=== PATIENT | female | born 1955 | race Caucasian/White ===

== ENCOUNTER 2020-04-28 00:22 | Emergency (ER) | payer OTHER, SELFPAY ==
--- NOTE | 2020-04-28 00:28 | ED_ITS ---
HPI - Abdominal Pain General Chief Complaint: Abdominal Pain Stated Complaint: ABD PAIN Time Seen by Provider: 04/28/20 00:26 Source: patient Mode of arrival: ambulatory Limitations: no limitations History of Present Illness HPI narrative: Patient no significant history of abdominal problems notice a sudden onset of lower abdominal pain more on the left side since 19:00 associated with nausea pain gets worse when she ambulates patient never had similar pain in the past, had normal bowel movement today MD elicited complaint: abdominal pain Pertinent past history: none Onset (ago): hour(s) Pain Consistency: intermittent Location: LLQ Severity: moderate Quality: cramping Radiation: none Exacerbating factors: movement Relieving factors: nothing Associated symptoms: nausea Related Data Allergies Allergy/AdvReac Type Severity Reaction Status Date / Time ampicillin Allergy Rash Verified 04/28/20 00:35 azithromycin Allergy Rash Verified 04/28/20 00:35 [From Zithromax Z-Guillermo] Penicillins Allergy Rash Verified 04/28/20 00:35 Review of Systems Review of Systems Constitutional : No Weight loss, No Fever, No Chills ENT/Mouth : No sore throat, No Rhinorrhea Eyes: No Eye Pain, No Swelling Cardiovascular : No Chest Pain, no palpitations Respiratory : No Cough, No Sputum, no shortness of breath Gastrointestinal :+Nausea, No Vomiting, No Diarrhea, + abdominal Pain, no black stools Genitourinary : No Dysuria, No Urinary Frequency Musculoskeletal : No joint pain, No Myalgias, No Joint Swelling Skin : No Skin Lesions, No rash Neuro : No Weakness, No Numbness, No Dizziness, No Headache Psych : No Anxiety/Panic, No Depression Heme/Lymph: No Bruising, No Lymphadenopathy Endocrine : No Polyuria, No Polydipsia All other systems reviewed and are negative Physical Exam Vital Signs: Vital Signs: Last Vital Signs Temp 98.7 F 04/28/20 00:36 Pulse 76 04/28/20 00:36 Resp 17 04/28/20 00:36 BP 126/60 04/28/20 00:36 Pulse Ox 96 04/28/20 00:36 Body Mass Index 29.8 Appearance: Alert. Oriented X3. No acute distress. Eyes: Pupils equal, round and reactive to light. ENT: Pharynx normal. Neck: Normal inspection. Neck supple. CVS: Normal heart rate and rhythm. Pulses normal. Respiratory: No respiratory distress. Breath sounds normal. Abdomen: Soft slight deep tenderness left lower quadrant m Bowel sounds are present, no mass palpable, no CVA tenderness Skin: Skin warm and dry. Normal skin color. Normal skin turgor. Extremities: No lower extremity edema. Neuro: Oriented X 3. No motor deficit. No sensory deficit. MDM - Abdominal Pain MDM Narrative Medical decision making narrative: Patient with Lower abdominal cramping pain CT scan is negative for any acute pathology except for mild enteritis with incr eased stool burden, WBC counts are normal patient denies any diarrhea at this time give her Bentyl and discharge her home Differential Diagnosis Differential diagnosis: Likely abdominal pain, diverticulitis and tariq roenteritis Medical Records Attestation: I reviewed the patient's medical records. Lab Data Attestation: I reviewed the patient's lab results. Result diagrams: 04/28/20 01:06 04/28/20 01:06 Labs: Lab Results 04/28/20 04/28/20 04/28/20 Range/Units 01:06 01:06 01:06 WBC 9.0 (4.8-10.8) X10*3/uL RBC 4.39 (4.20-5.50) X10*6/uL Hgb 13.8 (12.0-16.0) g/dl Hct 41.2 (37-47) % MCV 93.8 (80-98) fL MCH 31.4 (27.0-33.0) pg MCHC 33.5 (31.0-35.0) g/dl RDW 12.6 (11.0-16.0) % Plt Count 212 (160-400) X10*3/uL MPV 10.0 (9.4-12.3) fL Immature Gran % (Auto) 0.4 (0.0-0.4) % Neut % (Auto) 78.5 H (45-73) % Lymph % (Auto) 15.5 L (20-40) % Cloud % (Auto) 4.8 (2-11) % Eos % (Auto) 0.7 (0-4) % Baso % (Auto) 0.1 (0-2) % Lymph # (Auto) 1.4 (1.2-4.9) X10*3/uL [place] # (Auto) 0.4 (0.1-1.2) X10*3/uL Eos # (Auto) 0.1 (0.0-0.4) X10*3/uL Baso # (Auto) 0.0 (0.0-0.2) X10*3/uL Abs Immat Gran (auto) 0.04 H (0.00-0.03) X10*3/uL Absolute Neuts (auto) 7.0 (2.0-8.3) X10*3/uL Absolute Nucleated RBC 0.000 (0.0-0.012) X10*3/uL Nucleated RBC % (auto) 0.0 (0.0-0.2) /100WBC Sodium Cancelled 138 Potassium Cancelled 3.9 Chloride Cancelled 101 Carbon Dioxide Cancelled 27 Anion Gap Cancelled 14 BUN Cancelled 22 H Creatinine Cancelled 0.74 Estim Creat Clear Calc Cancelled 83.8 Estimated GFR Cancelled > 60 Random Glucose Cancelled 134 H Calcium Cancelled 9.6 Total Bilirubin 0.4 (0.0-1.0) mg/dL Direct Bilirubin 0.2 (0.0-0.5) mg/dL AST 27 (5-31) U/L ALT 39 H (0-31) U/L Alkaline Phosphatase 62 (39-117) U/L Total Protein 6.3 L (6.5-8.0) g/dL Albumin 4.1 (3.5-5.0) g/dL Lipase 29 (8-78) U/L [facility] Past Medical History Medical History (Updated 04/28/20 @ 00:41 by Milka Ahuja) HTN (hypertension) Surgical History (Updated 04/28/20 @ 00:41 by Milka Ahuja) H/O shoulder surgery Social History Social History Smoking Status: Never smoker Use of substances other than those prescribed or required for medical reasons: No Advance Directives: No Advance Directives Information Provided: No
[2020-04-28 00:36] VITALS: BP 126/60; PULSE 76; RESP 17; TEMP 37.1; O2SAT 96; BMI 29.8
--- NOTE | 2020-04-28 00:37 | CT_ITS ---
EXAMINATION: CT ABDOMEN AND PELVIS WITHOUT CONTRAST CLINICAL INFORMATION: Left lower quadrant pain. Question diverticulitis. COMPARISON: None TECHNIQUE: Multidetector volumetric imaging was performed from the superior aspect of the liver through the pubic symphysis. Sagittal and coronal reformatted images were obtained on the technologist's workstation. This CT examination was performed using dose optimization techniques as appropriate, variously including the following: *Automated exposure control *Adjustment of mA and/or kV according to patient size (this includes techniques or standardized protocols for targeted exams where dose is matched to indication/reason for exam; i.e. extremities or head) *Use of iterative reconstruction technique DLP: 833 mGy-cm FINDINGS: LUNG BASES: The visualized lung bases are unremarkable. LIVER, GALLBLADDER, AND BILIARY TREE: The liver is normal in size, shape, and attenuation. No focal hepatic lesion or biliary ductal dilatation is present. The gallbladder is unremarkable with no evidence of radiopaque gallstones, gallbladder wall thickening, or obvious pericholecystic inflammatory changes. PANCREAS: Unremarkable. SPLEEN: Unremarkable. ADRENAL GLANDS: Unremarkable. KIDNEYS AND URETERS: The kidneys are normal in size, shape, and attenuation. No hydronephrosis, hydroureter, or calculi seen. No perinephric stranding. BLADDER: Unremarkable. GASTROINTESTINAL TRACT: The stomach is distended without wall thickening. Fluid-filled mildly dilated small bowel is seen in the left abdomen. Mild stranding adjacent. The more distal small bowel is normal in caliber. Normal appendix. There is a moderate to large colonic stool burden. Mild colonic diverticulosis. No diverticulitis. No colonic wall thickening or inflammation. No free air. Small amount of pelvic free fluid. ABDOMINAL WALL: No significant hernia is appreciated. LYMPH NODES: Normal. VASCULAR: Unremarkable. PELVIC VISCERA: Calcifications and heterogeneity of the uterus suggestive of fibroids. No adnexal mass. There is a fluid attenuation ovoid cystic structure in the right labia measuring 5.2 x 2.8 cm. OSSEOUS STRUCTURES: No acute or suspicious osseous abnormality. Mild degenerative changes of the spine. CT/CT abdomen pelvis wo con IMPRESSION: Fluid-filled and mildly prominent appearance of the small bowel within the left abdomen. Small amount of free fluid with mild inflammation suggestive of enteritis. Moderate to large colonic stool burden. There is colonic diverticulosis. No diverticulitis. Nonspecific cystic structure in the right labia. This could represent a canal of Nuck cyst.
[2020-04-28] MEDS: Morphine Sulfate 4 MG/ML CARTRIDGE IVPUSH (00:55)
[2020-04-28] MEDS: ondansetron HCL 4 MG/2 ML VIAL IVPUSH (00:55)
[2020-04-28 01:17] LABS: Basophils Percent Auto 0.1 % (0-2); Eosinophils Absolute Auto 0.1 X10*3/uL (0.0-0.4); Eosinophils Percent Auto 0.7 % (0-4); Hematocrit 41.2 % (37-47); Hemoglobin 13.8 g/dl (12.0-16.0); Imm Gran Abs Auto 0.04 X10*3/uL (0.00-0.03); Imm Gran Pct Auto 0.4 % (0.0-0.4); Lymphocytes Absolute Auto 1.4 X10*3/uL (1.2-4.9); Lymphocytes Percent Auto 15.5 % (20-40); Mean Corpuscular HGB Conc 33.5 g/dl (31.0-35.0); Mean Corpuscular Hemoglobin 31.4 pg (27.0-33.0); Mean Corpuscular Volume 93.8 fL (80-98); Monocytes Absolute Auto 0.4 X10*3/uL (0.1-1.2); Monocytes Percent Auto 4.8 % (2-11); Neutrophils Percent Auto 78.5 % (45-73); Platelet Count 212 X10*3/uL (160-400); Red Blood Count 4.39 X10*6/uL (4.20-5.50); Red Cell Distribution Width 12.6 % (11.0-16.0)
[2020-04-28 01:20] LABS: MANUAL DIFF FLAG NO
--- NOTE | 2020-04-28 01:38 | PC.NURSE ---
REPORT GIVEN TO BRICE SYED.
[2020-04-28 01:41] LABS: Alanine Aminotransferase 39 U/L (0-31); Albumin Level 4.1 g/dL (3.5-5.0); Alkaline Phosphatase 62 U/L (39-117); Anion Gap 14 (12-20); Aspartate Amino Transferase 27 U/L (5-31); Bilirubin Direct 0.2 mg/dL (0.0-0.5); Bilirubin Total 0.4 mg/dL (0.0-1.0); Blood Urea Nitrogen 22 mg/dL (9-16); Calcium 9.6 mg/dL (8.4-10.2); Carbon Dioxide 27 mmol/L (22-29); Chloride 101 mmol/L (96-108); Creatinine Clr Calc Pharmacy 83.8; Estimated Glomerular Filt Rate > 60; Glucose Random 134 mg/dL (60-115); Lipase 29 U/L (8-78); Potassium 3.9 mmol/l (3.3-5.1); Sodium 138 mmol/L (135-145); Total Protein 6.3 g/dL (6.5-8.0)
[2020-04-28 02:00] VITALS: BP 111/66; PULSE 68; RESP 16; O2SAT 97
[2020-04-28] MEDS: 0.9 % Sodium Chloride 1,000 ML 999 ML IVCONT (02:10)
[2020-04-28] MEDS: Milk of Magnesia 30 ML ORAL.SUSP PO (03:06)
[2020-04-28] MEDS: Dicyclomine HCl 10 MG CAPSULE 20 MG PO (03:06)
== END 2020-04-28 03:13 | disposition home or self-care (01) ==
PROVIDERS: Emergency Provider Internal Medicine
DX: R10.32 Left lower quadrant pain (principal); K59.00 Constipation, unspecified; I10 Essential (primary) hypertension
CPT/HCPCS: 36415; 74176; 80048; 80076; 83690; 85025; 96361; 96374; 96375; 99284; J2270; J2405

== ENCOUNTER 2020-04-28 08:10 | Emergency (ER) | payer OTHER, SELFPAY ==
[2020-04-28 08:19] VITALS: BP 127/62; PULSE 76; RESP 16; TEMP 36; O2SAT 97; BMI 29.8
--- NOTE | 2020-04-28 08:42 | ED_ITS ---
HPI - Abdominal Pain General Chief Complaint: Abdominal Pain Stated Complaint: abd pain Time Seen by Provider: 04/28/20 08:41 Source: patient Mode of arrival: ambulatory Limitations: no limitations History of Present Illness HPI narrative: 64 y/o female who was just discharged from this ER earlier this morning presents back with continued abdominal pain. She had a CT scan done showing fluid-filled and mildly prominent appearance of the small bowel within the left abdomen. Small amount of free fluid with mild inflammation suggestive of enteritis. Moderate to large colonic stool burden. She had normal WBC. She was discharged with Bentyl. She returns this morning with worsening central abdominal pain and vomiting x4. She is tearful on arrival. She states the pain previously was in her lower abdomen and now is upper and worse. She reports last BM 24 hours ago and was normal. No fever, chills, hematemesis, melena. No sick contacts. MD elicited complaint: abdominal pain Pain Consistency: constant Location: epigastric and periumbilical Severity: severe Pain scale (0-10): 10 Quality: cramping and stabbing Radiation: none Migration to: no migration Exacerbating factors: nothing Relieving factors: nothing Associated symptoms: nausea and vomiting Related Data Previous Rx's Medication Instructions Recorded docusate sodium [Docusil] 200 mg PO DAILY #30 cap 04/28/20 levofloxacin 500 mg PO DAILY 7 Days #7 tab 04/28/20 metronidazole [Flagyl] 500 mg PO Q8H 7 Days #21 tab 04/28/20 ondansetron HCl [Zofran] 4 mg PO Q8H PRN #15 tab 04/28/20 Allergies Allergy/AdvReac Type Severity Reaction Status Date / Time ampicillin Allergy Rash Verified 04/28/20 00:35 azithromycin Allergy Rash Verified 04/28/20 00:35 [From Zithromax Z-Guillermo] Penicillins Allergy Rash Verified 04/28/20 00:35 Review of Systems Review of Systems Constitutional: No Fever, No Chills Cardiovascular: No Chest Pain, No SOB, No Orthopnea, No Edema Respiratory: No Cough, No Sputum, No Wheezing, No dyspnea Gastrointestinal: + Nausea, + Vomiting, No Diarrhea, + abdominal Pain Genitourinary: No Dysuria, No Urinary Frequency, No Hematuria Musculoskeletal: No joint pain, No Myalgias Skin: No Skin Lesions, No rash Neuro: No Weakness, No Numbness, No Dizziness, No Headache Psych: No Anxiety/Panic, No Depression Physical Exam Vital Signs: Vital Signs: Last Vital Signs Temp 97.9 F 04/28/20 11:28 Pulse 70 04/28/20 11:28 Resp 16 04/28/20 11:28 BP 137/69 04/28/20 11:28 Pulse Ox 100 04/28/20 11:28 Body Mass Index 29.8 Appearance: Alert. Oriented X3. Tearful, appears in pain. Eyes: Pupils equal, round and reactive to light. ENT: Pharynx normal. Neck: Normal inspection. Neck supple. CVS: Normal heart rate and rhythm. Pulses normal. Respiratory: No respiratory distress. Breath sounds normal. Abdomen: Soft with central and epigastric tenderness. No rebound or guarding. +BS x4. Skin: Skin warm and dry. Normal skin color. Normal skin turgor. No rashes. Extremities: No lower extremity edema. Neuro: Oriented X 3. No motor deficit. No sensory deficit. Course Course Course Narrative: 64 y/o female presenting back with worsening central abdominal pain and vomiting. Pain out of proportion on exam. Will check lactic acid to assess for hypoperfusion. No risk factors for mesenteric ischemia however. Will repeat labs and assess for new electrolyte derrangement and leukocytosis. Reevaluation(s) Reevaluation #1: No leukocytosis or electrolyte derrangements. Lactric acid normal making mesenteria ischemic much less likely. Given her return with severe pain and previous finding of enteritis will start antibiotics. Significant i mprovement after IVF, Zofran and Morphine. Pain improved to 4/10. She is tolerating PO. She is stable for discharge with continue oral antibiotics and anti-emetics. MDM - Abdominal Pain Lab Data Result diagrams: 04/28/20 09:12 04/28/20 09:12 Labs: Lab Results 04/28/20 04/28/20 04/28/20 Range/Units 09:12 09:12 09:23 WBC 7.3 (4.8-10.8) X10*3/uL RBC 4.57 (4.20-5.50) X10*6/uL Hgb 14.2 (12.0-16.0) g/dl Hct 42.1 (37-47) % MCV 92.1 (80-98) fL MCH 31.1 (27.0-33.0) pg MCHC 33.7 (31.0-35.0) g/dl RDW 12.6 (11.0-16.0) % Plt Count 216 (160-400) X10*3/uL MPV 9.3 L (9.4-12.3) fL Immature Gran % (Auto) 0.3 (0.0-0.4) % Neut % (Auto) 81.5 H (45-73) % Lymph % (Auto) 12.7 L (20-40) % [place] % (Auto) 5.3 (2-11) % Eos % (Auto) 0.1 (0-4) % Baso % (Auto) 0.1 (0-2) % Lymph # (Auto) 0.9 L (1.2-4.9) X10*3/uL [place] # (Auto) 0.4 (0.1-1.2) X10*3/uL Eos # (Auto) 0.0 (0.0-0.4) X10*3/uL Baso # (Auto) 0.0 (0.0-0.2) X10*3/uL Abs Immat Gran (auto) 0.02 (0.00-0.03) X10*3/uL Absolute Neuts (auto) 6.0 (2.0-8.3) X10*3/uL Absolute Nucleated RBC 0.000 (0.0-0.012) X10*3/uL Nucleated RBC % (auto) 0.0 (0.0-0.2) /100WBC Sodium 138 (135-145) mmol/L Potassium 4.1 (3.3-5.1) mmol/l Chloride 103 (96-108) mmol/L Carbon Dioxide 27 (22-29) mmol/L Anion Gap 12 (12-20) BUN 20 H (9-16) mg/dL Creatinine 0.72 (0.5-1.4) mg/dL Estim Creat Clear Calc 86.1 Estimated GFR > 60 Random Glucose 148 H (60-115) mg/dL Lactic Acid 1.2 (0.5-2.0) mmol/L Calcium 9.4 (8.4-10.2) mg/dL Magnesium 1.8 (1.6-2.6) mg/dL Total Bilirubin 0.7 (0.0-1.0) mg/dL Direct Bilirubin 0.3 (0.0-0.5) mg/dL AST 25 (5-31) U/L ALT 37 H (0-31) U/L Alkaline Phosphatase 67 (39-117) U/L Total Protein 6.3 L (6.5-8.0) g/dL Albumin 4.1 (3.5-5.0) g/dL Discharge Plan Discharge Clinical Impression: Enteritis Patient Disposition: Home, Self-Care Instructions: Enteritis (ED) Additional Instructions: You are being started on antibiotics for inflammation of your GI tract. Start the Metronidazole medication tonight. Start the Levaquin medication tomorrow - it is a once a day medication and you were given your 1st dose today in the ER. Take the prescribed medication as needed for nausea. Rest, stay hydrated. Stick to a bland diet while you are not feeling well. CT scan showed constipation - recommend to start taking Miralax daily. Follow up with your doctor this week. Follow if with GI doctor. Prescriptions: New ondansetron HCl [Zofran] 4 mg tablet 4 mg PO Q8H PRN (Reason: nausea and vomiting) Qty: 15 RF: 0 metronidazole [Flagyl] 500 mg tablet 500 mg PO Q8H 7 Days Qty: 21 RF: 0 levofloxacin 500 mg tablet 500 mg PO DAILY 7 Days Qty: 7 RF: 0 No Action docusate sodium [Docusil] 100 mg capsule 200 mg PO DAILY Qty: 30 RF: 0 Referrals: Janee Coburn MD [Physician] - 1 week (enteritis) [facility] Past Medical History Attestation statement: The following information was validated with the patient. Medical History HTN (hypertension) Surgical History (Updated 04/28/20 @ 00:41 by Milka Ahuja) H/O shoulder surgery Social History Social History Smoking Status: Never smoker Use of substances other than those prescribed or required for medical reasons: No Advance Directives: No Advance Directives Information Provided: Yes
[2020-04-28 09:18] LABS: MANUAL DIFF FLAG NO
[2020-04-28 09:19] LABS: Basophils Percent Auto 0.1 % (0-2); Eosinophils Percent Auto 0.1 % (0-4); Hematocrit 42.1 % (37-47); Hemoglobin 14.2 g/dl (12.0-16.0); Imm Gran Abs Auto 0.02 X10*3/uL (0.00-0.03); Imm Gran Pct Auto 0.3 % (0.0-0.4); Lymphocytes Absolute Auto 0.9 X10*3/uL (1.2-4.9); Lymphocytes Percent Auto 12.7 % (20-40); Mean Corpuscular HGB Conc 33.7 g/dl (31.0-35.0); Mean Corpuscular Hemoglobin 31.1 pg (27.0-33.0); Mean Corpuscular Volume 92.1 fL (80-98); Mean Platelet Volume 9.3 fL (9.4-12.3); Monocytes Absolute Auto 0.4 X10*3/uL (0.1-1.2); Monocytes Percent Auto 5.3 % (2-11); Neutrophils Percent Auto 81.5 % (45-73); Platelet Count 216 X10*3/uL (160-400); Red Blood Count 4.57 X10*6/uL (4.20-5.50); Red Cell Distribution Width 12.6 % (11.0-16.0); White Blood Count 7.3 X10*3/uL (4.8-10.8)
[2020-04-28] MEDS: Morphine Sulfate 4 MG/ML CARTRIDGE IVPUSH (09:30)
[2020-04-28] MEDS: 0.9 % Sodium Chloride 1,000 ML 999 ML IVCONT (09:30)
[2020-04-28] MEDS: ondansetron HCL 4 MG/2 ML VIAL IVPUSH ×2 (09:30→13:34)
[2020-04-28 09:31] VITALS: BP 129/76; PULSE 54; RESP 16; O2SAT 98
[2020-04-28 10:02] LABS: Alanine Aminotransferase 37 U/L (0-31); Albumin Level 4.1 g/dL (3.5-5.0); Alkaline Phosphatase 67 U/L (39-117); Anion Gap 12 (12-20); Aspartate Amino Transferase 25 U/L (5-31); Bilirubin Direct 0.3 mg/dL (0.0-0.5); Bilirubin Total 0.7 mg/dL (0.0-1.0); Blood Urea Nitrogen 20 mg/dL (9-16); Calcium 9.4 mg/dL (8.4-10.2); Carbon Dioxide 27 mmol/L (22-29); Chloride 103 mmol/L (96-108); Creatinine Clr Calc Pharmacy 86.1; Estimated Glomerular Filt Rate > 60; Glucose Random 148 mg/dL (60-115); Magnesium 1.8 mg/dL (1.6-2.6); Potassium 4.1 mmol/l (3.3-5.1); Sodium 138 mmol/L (135-145); Total Protein 6.3 g/dL (6.5-8.0)
[2020-04-28 10:09] LABS: Lactic Acid 1.2 mmol/L (0.5-2.0)
[2020-04-28] MEDS: metroNIDAZOLE/NS 500 MG/100 ML PIGGYBACK 100 MG IV (10:31)
[2020-04-28 10:33] VITALS: BP 128/63; PULSE 68; RESP 16; O2SAT 96
--- NOTE | 2020-04-28 10:33 | PC.NURSE ---
Pain level down to 2/10 at this time. ABX started
[2020-04-28 11:28] VITALS: BP 137/69; PULSE 70; RESP 16; TEMP 36.6; O2SAT 100
[2020-04-28] MEDS: levoFLOXacin/D5W 500 MG/100 ML PIGGYBACK 100 MG IV (11:31)
== END 2020-04-28 13:50 | disposition home or self-care (01) ==
PROVIDERS: Physician Assistant; Emergency Provider Emergency Medicine
DX: K52.9 Noninfective gastroenteritis and colitis, unspecified (principal); I10 Essential (primary) hypertension
CPT/HCPCS: 36415; 80048; 80076; 83605; 83735; 85025; 87040; 96361; 96365; 96375; 96376; 99284; J1956; J2270; J2405

== ENCOUNTER 2024-02-24 08:48 | Outpatient (REF) | payer MEDICARE, OTHER, SELFPAY | END 2024-02-24 08:49 | disposition home or self-care (01) | LOC: HO.SH 08:48 | PROVIDERS: Visit Provider Internal Medicine | DX: Z01.118 Encounter for examination of ears and hearing with other abnormal findings (principal); H93.293 Other abnormal auditory perceptions, bilateral | CPT/HCPCS: 92557 ==